=== PATIENT | female | born 1980 | race Caucasian/White ===

== ENCOUNTER → 2020-12-18 | Outpatient (CLI) | payer OTHER ==
[~2020-12-18] MED LIST: CLARITIN10 M2 PO; COLACE 100MG C100 MG PO; METOPROLOL SUCC50 MG PO; NORCO 5-325 TA1 EACH PO; NORGESTIMATE-E1 EACH PO
== END ==
LOC: MAMO 09:05
DX: Z12.31 Encounter for screening mammogram for malignant neoplasm of breast (principal)
CPT/HCPCS: 77063; 77067